=== PATIENT | female | born 1985 | race African-American/Black ===

== ENCOUNTER 2024-04-04 06:56 | Day surgery (SDC) | payer OTHER, SELFPAY ==
[2024-03-30 11:09] LABS: Hematocrit 40.3 % (37.0-47.0); Hemoglobin 13.4 g/dL (12.0-16.0); Mean Corp Hgb Conc. 33.3 g/dL (33.0-37.0); Mean Corpuscular Hgb 28.7 pg (27.0-31.0); Mean Corpuscular Volume 86.3 fL (81.0-99.0); Mean Platelet Volume 10.2 fL (7.4-10.4); Platelet Count 299 10^3/uL (130-400); Red Blood Cell Count 4.67 10^6/uL (4.20-5.40); Red Cell Dist. Width 13.2 % (11.5-14.5); White Blood Cell Count 7.6 10^3/uL (4.8-10.8)
[2024-03-30 11:41] LABS: Blood Urea Nitrogen 14 mg/dl (7-17); Calcium 9.1 mg/dl (8.4-10.2); Carbon Dioxide 25 mmol/L (22-30); Chloride 107 mmol/L (98-107); Glucose 93 mg/dl (70-99); Potassium 4.3 mmol/L (3.5-5.1); Sodium 142 mmol/L (135-145); eGFR > 60.00
[2024-03-30 12:31] VITALS: BMI 28.7
[2024-04-04] VITALS (11 sets, daily range): BP systolic 95–122; BP diastolic 61–75; BMI 28.7
[2024-04-04] MEDS: Pyridium 200 MG PO (09:04)
[2024-04-04] MEDS: DILAUDID 0.25 MG IV ×2 (12:13→12:22)
== END 2024-04-04 14:35 | disposition home or self-care (01) ==
LOC: SDS 06:56
PROVIDERS: ATTENDING PHYSICIAN Obstetrics & Gynecology; FAMILY PHYSICIAN Family Medicine
DX: N39.3 Stress incontinence (female) (male) (principal); N36.41 Hypermobility of urethra
CPT/HCPCS: 57288; 36415; 80048; 85027; 93005; C1771

== ENCOUNTER 2024-05-22 06:27 | Day surgery (SDC) | payer OTHER, SELFPAY ==
[2024-05-22] VITALS (7 sets, daily range): BP systolic 17–118; BP diastolic 55–78; BMI 28.3
[2024-05-22] MEDS: Pyridium 200 MG PO (09:07)
== END 2024-05-22 13:12 | disposition home or self-care (01) ==
LOC: SDS 06:27
PROVIDERS: ATTENDING PHYSICIAN Obstetrics & Gynecology
PROC: 0UQG7ZZ Repair Vagina, Via Natural or Artificial Opening (ICD-10-PCS; 2024-05-22)
DX: T83.721A Exposure of implanted vaginal mesh into vagina, initial encounter (principal); Y83.2 Surgical operation with anastomosis, bypass or graft as the cause of abnormal reaction of the patient, or of later complication, without mention of misadventure at the time of the procedure
CPT/HCPCS: 57295; J1580

== ENCOUNTER 2024-06-27 06:55 | Day surgery (SDC) | payer OTHER, SELFPAY ==
[2024-06-27] VITALS (7 sets, daily range): BP systolic 95–115; BP diastolic 53–73; BMI 27.5
[2024-06-27] MEDS: Pyridium 200 MG PO (09:37)
[2024-06-27] MEDS: NORMOSOL-R/PLASMALYTE-A 1000 IV (09:40)
== END 2024-06-27 11:53 | disposition home or self-care (01) ==
LOC: SDS 06:55
PROVIDERS: ATTENDING PHYSICIAN Obstetrics & Gynecology
PROC: 0UCG7ZZ Extirpation of Matter from Vagina, Via Natural or Artificial Opening (ICD-10-PCS; 2024-06-27)
DX: T83.721A Exposure of implanted vaginal mesh into vagina, initial encounter (principal); Y83.2 Surgical operation with anastomosis, bypass or graft as the cause of abnormal reaction of the patient, or of later complication, without mention of misadventure at the time of the procedure
CPT/HCPCS: 57415; 88300